=== PATIENT | male | born 1980 | race Caucasian/White ===

== ENCOUNTER 2024-07-04 06:39 | Emergency (ER) | payer OTHER ==
[~2024-07-04] VITALS: Ht 175.3 cm; Wt 87.1 kg
[2024-07-04] MEDS ORDERED: PredniSONE 20 MG Tab PO ONE (07:45)
[2024-07-04] MEDS ORDERED: LEVSOD25 PO (07:45)
[2024-07-04] MEDS ORDERED: Ketorolac Tromethamine 30mg Vial IM ONE (07:45)
[2024-07-04] MEDS ORDERED: ERGO400 PO (07:45)
[2024-07-04] MEDS ORDERED: OMEP20ER PO (07:46)
[2024-07-04] MEDS ORDERED: ESCI10 PO (07:46)
[2024-07-04] MEDS ORDERED: QUET200 PO (07:46)
[2024-07-04] MEDS ORDERED: B-12 COMPL1000 MCG/2 IM (07:47)
[2024-07-04] MEDS ORDERED: METO50 PO (07:47)
[2024-07-04] MEDS ORDERED: CEPH500 PO (07:48)
[2024-07-04] MEDS ORDERED: SULFAMETHOXAZO1 EAC1 PO (07:49)
[2024-07-04] MEDS ORDERED: Aspir 8181 MG PO (07:49)
[2024-07-04] MEDS ORDERED: SULTRIDS PO (07:50)
[2024-07-04] MEDS ORDERED: LOSA50 PO (07:50)
[2024-07-04] MEDS ORDERED: PRED20 PO (07:56)
== END 2024-07-04 09:15 | disposition home or self-care (01) ==
LOC: ER 06:39
DX: L51.9 Erythema multiforme, unspecified (principal); T36.8X5A Adverse effect of other systemic antibiotics, initial encounter
CPT/HCPCS: 96372; 99282-25; J1885; J7512